=== PATIENT | male | born 1945 | race Caucasian/White ===

== ENCOUNTER 2018-04-02 06:36 | Emergency (ER) | payer OTHER ==
[~2018-04-02] VITALS: Ht 172.7 cm; Wt 68.0 kg
[2018-04-02 06:48] VITALS: Ht 172.7 cm; Wt 68.0 kg
[2018-04-02 08:09] LABS: PLATELET COUNT 172 x10^3mcL (130-400); RED CELL DISTRIBUTION WIDTH 14.2 % (11.5-14.5)
[2018-04-02 08:22] LABS: CALCIUM 8.6 mg/dL (8.5-10.1); CARBON DIOXIDE 28.4 mmol/L (21-32); CHLORIDE SERUM 98 mmol/L (98-107); CREATININE SERUM 1.2 mg/dL (0.7-1.3); GLUCOSE SERUM 137 mg/dL (74-106); SODIUM SERUM 132 mmol/L (136-145)
[2018-04-02 08:28] LABS: ALBUMIN 3.5 g/dL (3.4-5.0); ALKALINE PHOSPHATASE 63 U/L (46-116); ALT/SGPT 19 U/L (16-63); AST/SGOT 15 U/L (15-37); BILIRUBIN TOTAL 0.72 mg/dL (0.20-1.00); TOTAL PROTEIN, SERUM 7.8 g/dL (6.4-8.2)
[2018-04-02 08:29] LABS: C REACTIVE PROTEIN 13.6 mg/dL (<=0.9)
[2018-04-02 08:33] LABS: CK-MB 1.4 ng/mL (0-3.6); FREE T4 0.79 ng/dL (0.76-1.46); FREE THYROXINE INDEX 2.3 ug/dL (1.4-4.5); T4(THYROXINE) 8.1 ug/dL (4.7-13.3)
[2018-04-02 08:36] LABS: T3 TOTAL 1.09 ng/mL
[2018-04-02 09:26] LABS: ERYTHROCYTE SED RATE 51 mm/hr (0-20)
[2018-04-02 09:51] LABS: microscopic required? YES; urine erythrocyte 2+ (NEGATIVE)
[2018-04-02 09:55] LABS: BAND NEUTROPHIL 18 % (0-10); BASOPHIL 0 % (0-2); METAMYELOCTE 1 % (0-2); MONOCYTE 1 % (0-7); SEGMENTED NEUTROPHILS 78 % (37-75)
[2018-04-02 09:57] LABS: PLATELET MORPHOLOGY PLATELETS NORMAL; rbc morphology (normal/abnorm) NORMAL (NORMAL)
[2018-04-02 10:44] VITALS: BP 134/66
== END 2018-04-02 10:44 | disposition home or self-care (01) ==
LOC: ED 06:36
PROVIDERS: Specialist
DX: J18.1 Lobar pneumonia, unspecified organism (principal); I10 Essential (primary) hypertension; E78.00 Pure hypercholesterolemia, unspecified
CPT/HCPCS: 36600; 84439; 87804; J2543; J7030